=== PATIENT | male | born 1980 | race African-American/Black ===

== ENCOUNTER 2019-07-25 00:04 | Emergency (ER) | payer BC ==
[2019-07-25] MEDS ORDERED: HYDROcodone/Acetaminophen 10/325 mg Tablet ONE (00:37)
== END 2019-07-25 00:40 | disposition home or self-care (01) ==
LOC: ERS 00:04
DX: M70.51 Other bursitis of knee, right knee (principal); F17.210 Nicotine dependence, cigarettes, uncomplicated
CPT/HCPCS: 99283

== ENCOUNTER 2019-12-15 20:49 | Emergency (ER) | payer BC ==
[2019-12-15] MEDS ORDERED: Ketorolac Tromethamine 30 MG/ML VIAL ONE (21:43)
--- NOTE | 2019-12-16 07:53 | RAD ---
LEFT KNEE 4 VIEWS: DATE: 12/15/2019. COMPARISON: None. HISTORY: Pain. FINDINGS: There is a small knee joint effusion. There is no displaced fracture or evidence of dislocation seen . IMPRESSION: Knee joint effusion with no displaced fracture or dislocation. Knee joint effusion could be on the b asis of inflammatory change or internal derangement. Clinical correlation is essential. POS: [facility]
== END 2019-12-15 21:56 | disposition home or self-care (01) ==
LOC: ERS 20:49
DX: S83.512A Sprain of anterior cruciate ligament of left knee, initial encounter (principal); F17.210 Nicotine dependence, cigarettes, uncomplicated; Y93.83 Activity, rough housing and horseplay
CPT/HCPCS: 96372; J1885